=== PATIENT | female | born 1985 ===

== ENCOUNTER 2020-01-18 18:33 | Emergency (ER) | payer OTHER ==
[2020-01-18 18:59] VITALS: BP 139/99; PULSE 90; RESP 12; TEMP 98.6
--- NOTE | 2020-01-18 19:04 | ED ---
General Adult HPI - General Chief complaint: Seizure Stated complaint: seizure Time Seen by Provider: 01/18/20 18:50 Source: patient, EMS Mode of arrival: EMS Limitations: no limitations - History of Present Illness Initial comments: Patient presents to the ED by ambulance for evaluation. Patient states that her boyfriend reported to her that she had a seizure while in a store parking lot this evening. Patient states that she just remembers the ambulance being there. Patient states that she has a history of seizures, but she has not had one in the past couple of years. Patient states that she is supposed to be taking Keppra, but she does not take it. Patient states that she now feels fine, and she denies having any symptoms currently. Patient states that she wishes to leave at this time. Patient denies having any pain, fever or chills, headache, focal numbness/weakness/neuro deficit, visual changes, speech difficulty, neck/back/extremity pain, chest pain, dyspnea, cough or cold symptoms, dizziness, palpitations, abdominal pain, nausea/vomiting/diarrhea, dysuria or urinary symptoms, or any other symptoms or complaints. Patient denies alcohol abuse, illicit drug use her medication abuse/overdose. - Related Data Allergies Allergy/AdvReac Type Severity Reaction Status Date / Time Penicillins Allergy Unknown Verified 01/18/20 19:01 Review of Systems ROS Statement: Those systems with pertinent positive or pertinent negative responses have been documented in the HPI. ROS Other: All systems not noted in ROS Statement are negative. Past Medical History Past Medical History: GERD/Reflux, Seizure Disorder History of Any Multi-Drug Resistant Organisms: None Reported Past Psychological History: ADD/ADHD, Anxiety, Depression Smoking Status: Current every day smoker Past Alcohol Use History: None Reported Past Drug Use History: None Reported General Exam Limitations: no limitations General appearance: alert, in no apparent distress Head exam: Present: atraumatic, normocephalic Eye exam: Present: normal appearance, PERRL, EOMI ENT exam: Present: mucous membranes moist Neck exam: Present: other (Trachea is in midline). Absent: tenderness, meningismus Respiratory exam: Present: normal lung sounds bilaterally. Absent: respiratory distress, wheezes, rales, rhonchi Cardiovascular Exam: Present: regular rate, normal rhythm, normal heart sounds, other (Normal radial pulses bilaterally) GI/Abdominal exam: Present: soft. Absent: distended, tenderness, guarding Extremities exam: Present: normal inspection. Absent: tenderness, pedal edema Back exam: Present: normal inspection. Absent: tenderness Neurological exam: Present: alert, oriented X3, CN II-XII intact. Absent: motor sensory deficit Psychiatric exam: Present: normal affect, normal mood Skin exam: Present: warm, dry, intact, normal color Course Vital Signs 01/18/20 18:53 Temperature 98.6 F Pulse Rate 90 Respiratory 12 Rate Blood Pressure 139/99 O2 Sat by Pulse 100 Oximetry EKG Findings - EKG Comments: EKG Findings:: Normal sinus rhythm, ventricular rate of 85 bpm, normal GA and QRS intervals, normal QT interval, normal axis, no ST or T-wave abnormality Medical Decision Making - Medical Decision Making Patient is alert and oriented 4 and completely coherent at this time. Patient states that she wishes to leave AMA, and she states that she does not want to be in the hospital. I have advised patient undergo testing in the ED, but she adamantly refuses. I have explained to her the risks of leaving AMA including further morbidity and even in the worse case situation. Patient is able to verbalize understanding of these risks, and she still wishes to leave AMA at this time. Patient to sign AMA form. Patient was instructed to return to the ED should she change her mind or develop new or worsening symptoms. Patient was also instructed to follow up closely with her primary care provider. Patient states that her boyfriend will take her home from the ED today. Patient was counseled about seizures, and she was clearly explained return and follow-up instructions. Patient feels comfortable with this plan. Disposition Clinical Impression: Generalized seizure Disposition: Left Against Medical Advice Condition: Stable Instructions (If sedation given, give patient instructions): Recurrent Seizures in Adults (ED) Additional Instructions: Return to the ER if you change your mind, if you have another seizure, or if you develop new or worsening symptoms. Follow up closely with your primary care provider. Is patient prescribed a controlled substance at d/c from ED?: No Referrals: Nonstaff,Physician [Primary Care Provider] - 1-2 days Rojas Flower MD [REFERRING] - 1-2 days Time of Disposition: 19:09
== END 2020-01-18 19:29 | disposition left against medical advice (07) ==
LOC: EC 18:33
DX: G40.909 Epilepsy, unspecified, not intractable, without status epilepticus (principal); Z53.29 Procedure and treatment not carried out because of patient's decision for other reasons; F17.200 Nicotine dependence, unspecified, uncomplicated; Z88.0 Allergy status to penicillin
CPT/HCPCS: 99284

== ENCOUNTER 2020-01-28 19:39 | Emergency (ER) | payer OTHER ==
[2020-01-28 19:51] LABS: Glucose,Whole Blood 112 mg/dL (75-99)
[2020-01-28 19:54] VITALS: BP 143/102; PULSE 97; RESP 19; TEMP 99.4
== END 2020-01-28 20:10 ==
LOC: EC 19:39
DX: R56.9 Unspecified convulsions (principal)
CPT/HCPCS: 36415; 99499